=== PATIENT | male | born 1970 | race Two or more races ===

== ENCOUNTER 2025-07-15 09:34 | Inpatient (IN) | payer MEDICAID, OTHER ==
[~2025-07-15] VITALS: Ht 177.8 cm; Wt 84.0 kg
--- NOTE | 2025-07-15 10:01 | ED.PDOC ---
HPI Comments This is a 55 year old male presenting to the ED with chief complaint of chest pain. Patient reports that he has been experiencing left sided chest pain for the past week. Patient relays that his pain is worsened with deep breaths. Patient states he was told at his PCP's office last week that an EKG he had done was abnormal. Patient denies any SOB, dizziness, headache, or N/V. Chief Complaint: Chest Pain Time Seen by MD: 10:00 Primary Care Provider: Michael Cespedes Reviewed Notes: Nurses Notes, Medications, Allergies Allergies: Coded Allergies: Penicillins (Verified Allergy, Unknown, 07/15/25) Information Source: Patient Mode of Arrival: Ambulatory Severity: Moderate Timing: Weeks Duration: Since onset Prehospital treatment: None Location: Chest (L) Radiation: No Radiation Quality: Aching Onset: At Rest Cardiac Risk Factors: Diabetes PE Risk Factors: None History of: Similar pain in past Past Medical History PAST MEDICAL HISTORY: DM Surgical History: Denies all surgeries Family History Family History: Reviewed,noncontributory to illness Social History Smoker: Cigarettes Alcohol: Denies ETOH Use Drugs: Denies Drug Use Lives In: Home Constitutional: denies: chills, diaphoresis, fatigue, fever, malaise, sweats, weakness, others EENTM: denies: blurred vision, double vision, ear bleeding, ear discharge, ear drainage, ear pain, ear ringing, eye pain, eye redness, hearing loss, mouth pain, mouth swelling, nasal discharge, nose bleeding, nose congestion, nose pain, photophobia, tearing, throat pain, throat swelling, voice changes, others Respiratory: denies: cough, hemoptysis, orthopnea, SOB at rest, shortness of breath, SOB with excertion, stridor, wheezing, others Cardiovascular: reports: chest pain; denies: dizzy spells, diaphoresis, Dyspnea on exertion, edema, irregular heart beat, left arm pain, lightheadedness, palpitations, PND, syncope, others Gastrointestinal: denies: abdomen distended, abdominal pain, blood streaked bowels, constipated, diarrhea, dysphagia, difficulty swallowing, hematemesis, melena, nausea, poor appetite, poor fluid intake, rectal bleeding, rectal pain, vomiting, others Genitourinary: denies: burning, dysuria, flank pain, frequency, hematuria, incontinence, penile discharge, penile sore, pain, testicle pain, testicle swelling, urgency, others Neurological: denies: dizziness, fainting, headache, left sided numbness, left sided weakness, numbness, paresthesia, pre-existing deficit, right sided numbness, right sided weakness, seizure, speech problems, tingling, tremors, weakness, others Musculoskeletal: denies: back pain, gout, joint pain, joint swelling, muscle pa in, muscle stiffness, neck pain, others Integumetry: denies: bruises, change in color, change in hair/nails, dryness, laceration, lesions, lumps, rash, wounds, others Allergic/Immunocompromised: denies: Difficulty Healing, Frequent Infections, Hives, Itching, others Hematologic/Lymphatic: denies: anemia, blood clots, easy bleeding, easy bruising, swollen glands, others Endocrine: denies: excessive hunger, excessive sweating, excessive thirst, excessive urination, flushing, intolerance to cold, intolerance to heat, unexplained weight gain, unexplained weight loss, others Psychiatric: denies: anxiety, bipolar disorder, depression, hopeless, panic disorder, schizophrenia, sleepless, suicidal, others All Other Systems: Reviewed and Negative Physical Exam General Appearance: Moderate Distress, Normal HEENT: Normal ENT Inspection, Pharynx Normal, TMs Normal Neck: Full Range of Motion, Non-Tender, Normal, Normal Inspection Respiratory: Chest Non-Tender, Lungs Clear, No Accessory Muscle Use, No Respiratory Distress, Normal Breath Sounds Cardiovascular: No Edema, No JVD, No Murmur, No Gallop, Normal Peripheral Pulses, Regular Rate/Rhythm Breast Exam: Deferred Gastrointestinal: No Organomegaly, Non Tender, No Pulsatile Mass, Normal Bowel Sounds, Soft Genitalia: Deferred Pelvic: Deferred Rectal: Deferred Extremities: No calf tenderness, Normal capillary refill, Normal inspection, Normal range of motion, Non-tender, No pedal edema Musculoskeletal : Apperance: Normal Neurologic: Alert, retail advertising account executive II-XII nml as Tested, No Motor Deficits, Normal Affect, Normal Mood, No Sensory Deficits Cerebellar Function: Normal Reflexes: Normal Skin: Dry, Normal Color, Warm Peripheral Pulses: 3+ Radial (R), 3+ Radial (L) Lymphatic: No Adenopathy Was a procedure done? Was a procedure done?: No CP Differential Dx Differential Diagnosis: A-fib, A-Flutter, Angina, Anxiety / Panic Attack, Atrial Dysrhythmia, Electrolyte Disorder X-Ray, Labs, Meds, VS Vital Signs Date Time Temp Pulse Resp B/P (MAP) Pulse Ox O2 Delivery O2 Flow Rate FiO2 07/15/25 11:40 98.0 75 20 127/91 (103) 99 98.0 07/15/25 11:40 75 20 99 Room Air 07/15/25 11:36 127/91 07/15/25 09:41 77 07/15/25 09:35 97.5 85 18 145/98 99 97.5 Lab Test 07/15/25 11:20 Range/Units White Blood Count 7.3 4.4-10.8 10^3/uL Red Blood Count 4.57 4.5-5.90 10^6/uL Hemoglobin 15.5 13.5-17.5 g/dL Hematocrit 45.1 41.0-53.0 % Mean Corpuscular Volume 98.7 80.0-100.0 fL Mean Corpuscular Hemoglobin 34.0 H 28.0-32.0 pg Mean Corpuscular Hemoglobin Concent 34.4 32.0-36.0 g/dL Red Cell Distribution Width 12.7 11.8-14.3 % Platelet Count 311 140-450 10^3/uL Mean Platelet Volume 6.6 L 6.9-10.8 fL Neutrophils (%) (Auto) 66.6 37.0-80.0 % Lymphocytes (%) (Auto) 23.6 10.0-50.0 % Monocytes (%) (Auto) 7.8 0.0-12.0 % Eosinophils (%) (Auto) 1.8 0.0-7.0 % Basophils (%) (Auto) 0.2 0.0-2.0 % Neutrophils # (Auto) 4.9 1.6-8.6 10 ^3/uL Lymphocytes # (Auto) 1.7 0.4-5.4 10 ^3/uL Monocytes # (Auto) 0.6 0-1.3 10 ^3/uL Eosinophils # (Auto) 0.1 0-0.8 10 ^3/uL Basophils # (Auto) 0 0-0.2 10 ^3/uL Nucleated Red Blood Cells 0.2 % D-Dimer, Quantitative 0.31 0.0-0.49 mg/L FEU Sodium Level 136 136-145 mmol/L Potassium Level 5.0 3.5-5.1 mmol/L Chloride Level 100 98-107 mmol/L Carbon Dioxide Level 31 20-31 mmol/L Anion Gap 5 5-15 Blood Urea Nitrogen 34 H 9-23 mg/dL Creatinine 0.86 0.700-1.30 mg/dL Glomerular Filtration Rate Calc 102 >90 mL/min BUN/Creatinine Ratio 39.5 H 10.0-20.0 Serum Glucose 112 H 74-106 mg/dL Calcium Level 9.4 8.7-10.4 mg/dL Troponin I High Sensitivity 5 </=54 ng/L Current Medications Medications (Trade) Dose Ordered Sig/Nicko Route Start Time Stop Time Status Last Admin Aspirin 325 mg ONCE ONCE PO 07/15/25 10:45 07/15/25 10:46 DC 07/15/25 11:34 Nitroglycerin (Ntrostat Sublingual) 0.4 mg ONCE ONCE SL 07/15/25 10:45 07/15/25 10:46 DC 07/15/25 11:36 Patient alert. Came in because of chest pain. Cardiac marker within normal limits. Was given aspirin. Was given nitro. EKG reviewed does not show any acute changes. D-dimer within normal limits. WBC within normal limits. Hemoglobin within normal limits. Possibly need stress test. Risk factors for coronary artery disease. Time of 1ST Reevaluation: 10:59 Reevaluation 1ST: Unchanged Patient Education/Counseling: Diagnosis, Treatment Family Education/Counseling: No Family Present SEPSIS Sepsis Screen Date sepsis recognized/suspect: Jul 15, 2025 Time Sepsis recognized/suspect: 935 Recent Procedure: No On Antibiotic Therapy: No Respiratory Rate >20: No Heart Rate >90: No Temp<36 C (96.8 F) or >38.3 C: No SBP <90 or MAP <65 mmHG: No New Acute Mental Status Change: No Is the patient on CPAP, BIPAP,: No Physician Orders Electrocardigram (07/15/25 09:56) Troponin-I Hs (07/15/25 10:56) Troponin-I Hs (07/15/25 12:56) Electrocardigram (07/15/25 10:56) Electrocardigram (07/15/25 12:56) Vital Signs Date Time Temp Pulse Resp B/P (MAP) Pulse Ox O2 Delivery O2 Flow Rate FiO2 07/15/25 11:40 98.0 75 20 127/91 (103) 99 98.0 07/15/25 11:40 75 20 99 Room Air 07/15/25 11:36 127/91 07/15/25 09:41 77 07/15/25 09:35 97.5 85 18 145/98 99 97.5 Laboratory Tests Test 07/15/25 11:20 White Blood Count 7.3 10^3/uL (4.4-10.8) Medications Medications Dose Ordered Sig/Nicko Route Start Time Stop Time Status Last Admin Dose Admin Aspirin 325 mg ONCE ONCE PO 07/15/25 10:45 07/15/25 10:46 DC 07/15/25 11:34 Nitroglycerin 0.4 mg ONCE ONCE SL 07/15/25 10:45 07/15/25 10:46 DC 07/15/25 11:36 Departure 1 Departure Time of Disposition: 12:20 Impression: Primary Impression: Chest pain of unknown etiology Disposition: ADMITTED INPATIENT Admit to: Med Surg Condition: Guarded Critical Care Note Critical Care Time?: No Stability Stability form required: No Heart Score Heart Score: Heart Score Response (Comments) Value History Moderate Suspicious 1 EKG Normal 0 Age 45-64 1 Risk Factors 1 or 2 risk factors 1 Troponin Normal limit 0 Total 3 I personally scribed for SOPHIE YOUNG MD ([email or web address]) on 07/15/25 at 10:01. Electronically submitted by Marcelo Portillo ([email or web address]). SOPHIE YOUNG MD Jul 15, 2025 10:01
[2025-07-15] MEDS: NITROGLYCERIN 0.4 MG SL TAB SL ONE (11:36)
[2025-07-15 11:46] LABS: Hematocrit 45.1 % (41.0-53.0); Hemoglobin 15.5 g/dL (13.5-17.5); Mean Corpuscular Hemoglobin 34.0 pg (28.0-32.0); Mean Corpuscular Volume 98.7 fL (80.0-100.0); Nucleated Red Blood Cells % 0.2 %
[2025-07-15 11:54] LABS: Chloride 100 mmol/L (98-107); Potassium 5.0 mmol/L (3.5-5.1)
[2025-07-15 11:55] LABS: Anion Gap 5 (5-15); Calcium 9.4 mg/dL (8.7-10.4); Carbon Dioxide 31 mmol/L (20-31); Sodium 136 mmol/L (136-145)
[2025-07-15 12:00] LABS: BUN/Creatinine Ratio 39.5 (10.0-20.0); Blood Urea Nitrogen 34 mg/dL (9-23); Glucose 112 mg/dL (74-106)
[2025-07-15] MEDS ORDERED: NITROGLYCERIN 0.4 MG SL TAB SL ONE (15:00)
--- NOTE | 2025-07-15 16:04 | DVHINCON2 ---
Date Seen: Jul 15, 2025 Referring Physician MD Colten Reason for Consultation Chest pain History of Present Illness This is a 55-year-old man who presented to the emergency room with a chief complaint of chest pain for one year. The patient reports intermittent chest pain for the past year and worse during the past week. Describes the chest pain as substernal, soreness like and sharp in nature, nonradiating, and unprovoked. During admission the patient was medicated with NTG SL and ASA 325 mg with some relief of symptoms. He underwent a twelve-lead electrocardiogram revealing a sinus rhythm with non-specific changes to inferior leads. Serial troponin levels are negative. Of note, the patient states he exercises 5-6 times per week including heavy lifting. He also admits to the use of weekly testosterone shots for the past 9 months. Past medical history includes [id number] diabetes mellitus, dyslipidemia, anxiety on Adderall and Xanax, and e-cigarette use. Past Medical History Past medical history reviewed. No other significant than mentioned above. Past Surgical History Past medical history reviewed. No other significant than mentioned above. Family History Family history reviewed: Maternal grandfather: CABG, carotid stent Paternal grandmother: Unspecified CV disease Social History Denies the use of illicit drugs or alcohol. Admits to E-cigarette use, vaping. Allergies: Coded Allergies: Penicillins (Verified Allergy, Unknown, 07/15/25) Home Meds Home medications reviewed. Current Medications Current Medications Medications (Trade) Dose Ordered Sig/Nicko Route PRN Reason Start Time Stop Time Status Last Admin Aspirin 81 mg DAILY PO 07/16/25 10:00 Review of Systems Constitutional: No symptom reported Ears, Nose, & Throat: No symptom reported Eyes: No symptom reported Neurological: No symptoms reported Pulmonary/Respiratory: No symptom reported Cardiovascular: Chest pain Gastrointestinal: No symptom reported Genitourinary: No symptom reported Musculoskeletal: No symptom reported Skin: No symptom reported Psychiatric: No symptom reported Endocrine: No symptom reported Hemotologic/Lymphatic: No symptom reported Vital Signs Vital Signs Date Time Temp Pulse Resp B/P (MAP) Pulse Ox O2 Delivery O2 Flow Rate FiO2 07/15/25 12:28 148/91 07/15/25 11:40 98.0 75 20 99 98.0 07/15/25 11:40 Room Air Physical Exam General Appearance: Cooperative. Well developed. Well nourished. In no acute distress Head Exam: Normal inspection Neck Exam: Normal inspection. Non-tender. Normal alignment Pulmonary/Respiratory: Chest non-tender. Clear bilateral breath sounds Cardiovascular/Chest: Regular rate and rhythm. S1, S2. Sinus rhythm with nonspecific inferior changes. No murmurs. No JVD. Peripheral Pulses: 2+ Radial (R). 2+ Radial (L). 2+ Pedal (R). 2+ Pedal (L) Abdominal Exam: Normal bowel sounds. Soft. Nontender. No hepatospenomegaly. No masses Ankle Exam: Negative ankle edema Lower extremities: Negative lower extremity edema Neuro/Mental Status: A&O x4. Coherent Thoughts/Psych: Normal thought pattern. Anxious Appearance: In no acute distress Skin Exam: Normal inspection. Normal color. Warm. Dry Labs/Diagnostic Data Labs Test 07/15/25 15:16 07/15/25 13:01 07/15/25 11:20 Range/Units Lactic Acid Level 0.9 0.4-2.0 mmol/L Troponin I High Sensitivity 6 </=54 ng/L White Blood Count 7.3 4.4-10.8 10^3/uL Red Blood Count 4.57 4.5-5.90 10^6/uL Hemoglobin 15.5 13.5-17.5 g/dL Hematocrit 45.1 41.0-53.0 % Mean Corpuscular Volume 98.7 80.0-100.0 fL Mean Corpuscular Hemoglobin 34.0 H 28.0-32.0 pg Mean Corpuscular Hemoglobin Concent 34.4 32.0-36.0 g/dL Red Cell Distribution Width 12.7 11.8-14.3 % Platelet Count 311 140-450 10^3/uL Mean Platelet Volume 6.6 L 6.9-10.8 fL Neutrophils (%) (Auto) 66.6 37.0-80.0 % Lymphocytes (%) (Auto) 23.6 10.0-50.0 % Monocytes (%) (Auto) 7.8 0.0-12.0 % Eosinophils (%) (Auto) 1.8 0.0-7.0 % Basophils (%) (Auto) 0.2 0.0-2.0 % Neutrophils # (Auto) 4.9 1.6-8.6 10 ^3/uL Lymphocytes # (Auto) 1.7 0.4-5.4 10 ^3/uL Monocytes # (Auto) 0.6 0-1.3 10 ^3/uL Eosinophils # (Auto) 0.1 0-0.8 10 ^3/uL Basophils # (Auto) 0 0-0.2 10 ^3/uL Nucleated Red Blood Cells 0.2 % D-Dimer, Quantitative 0.31 0.0-0.49 mg/L FEU Sodium Level 136 136-145 mmol/L Potassium Level 5.0 3.5-5.1 mmol/L Chloride Level 100 98-107 mmol/L Carbon Dioxide Level 31 20-31 mmol/L Anion Gap 5 5-15 Blood Urea Nitrogen 34 H 9-23 mg/dL Creatinine 0.86 0.700-1.30 mg/dL Glomerular Filtration Rate Calc 102 >90 mL/min BUN/Creatinine Ratio 39.5 H 10.0-20.0 Serum Glucose 112 H 74-106 mg/dL Calcium Level 9.4 8.7-10.4 mg/dL Assessment Chest pain rule out coronary artery disease Rule out structural heart disease Pertinent family history of CV disease Yjg-wxheblm-zuccqgplh diabetes mellitus Hypertension, newly diagnosed Dyslipidemia E cigarette/Testosterone use Anxiety Plan/Recommendation (Dr. Grubbs) The patient with a Heart Score of 4 (moderate risk for major cardiac events) will undergo a transthoracic echocardiogram to evaluate cardiac function as well as a Cardiolite stress test to rule out coronary ischemia. In the meantime, continue single-antiplatelet therapy, lipid lowering agent, and initiate blood pressure control. Initiate chest pain protocol. Monitor ECG changes closely and notify accordingly. Counseled on e-cigarette use cessation. Further orders per clinical course. Thank you for allowing us to participate in this patient's care. Please call if you have any questions or concerns. This medical document was created using an electronic medical record system with voice recognition software and computerized dictation system. Although this document has been carefully reviewed, there might still be some phonetic and typographical errors. Occasional wrong-word or ``sound-alike substitutions may have occurred due to the inherent limitations of voice recognition software. These areas are purely typographical due to imperfections of the software programs and do not reflect any compromise in the patient's medical care. Please read the chart carefully and recognize, using context, where these substitutions have occurred. Plan discussed with: Patient, Other NYHA Physical activity limitations: NA Date of Service: Jul 15, 2025 Billing Provider: MERLY SIMS Cardiology Common Codes: [id number] MERLY SIMS Jul 15, 2025 16:04
[2025-07-15 16:06] LABS: Magnesium 2.4 mg/dL (1.6-2.6); Triglycerides 124.0 mg/dL (< 150)
[2025-07-15 16:07] LABS: Cholesterol 165.0 mg/dL (< 200)
[2025-07-15 16:08] LABS: HDL Cholesterol 35.0 mg/dL (40-59)
[2025-07-15 16:18] LABS: INR 0.97 (0.9-1.15); Partial Thromboplastin Time 27.4 SEC (24.5-34.5); Prothrombin Time 10.3 sec (9.3-11.8)
[2025-07-15 16:20] LABS: Alanine Aminotransferase 35 U/L (7-40); Albumin 4.4 g/dL (3.2-4.8); Alkaline Phosphatase 42 U/L (46-116); Bilirubin, Direct < 0.1 mg/dL (<0.3); Bilirubin, Total 0.4 mg/dL (0.2-1.0); Total Protein 6.9 g/dL (5.7-8.2)
[2025-07-15] MEDS ORDERED: NITROGLYCERIN 0.4 MG SL TAB SL PRN (17:00)
[2025-07-15] MEDS ORDERED: MORPHINE SULFATE INJ 2 MG/ml SYRG IV PRN (17:00)
[2025-07-15] MEDS: ATORVASTATIN 20 MG TAB PO ONE (17:12)
--- NOTE | 2025-07-15 17:17 | DVHPNRES ---
Progress Note Date Seen: Jul 15, 2025 Resident Creating Document: DOMINIQUE PACHECO Objective vital signs Vital Sign Date Time Temp Pulse Resp B/P (MAP) Pulse Ox O2 Delivery O2 Flow Rate FiO2 07/15/25 14:45 97.3 74 18 128/84 (99) 98 97.3 07/15/25 11:40 Room Air medications Current Medications Medications Dose Ordered Sig/Nicko Route Start Time Stop Time Status Last Admin Dose Admin Aspirin 81 mg DAILY PO 07/16/25 10:00 Nitroglycerin 0.4 mg Q5MINP PRN SL 07/15/25 17:00 Morphine Sulfate 2 mg Q30M PRN IV 07/15/25 17:00 Metoprolol Tartrate 12.5 mg BID PO 07/15/25 22:00 laboratory and microbiology Laboratory Tests 07/15/25 11:20 Test 07/15/25 11:20 Range/Units Serum Glucose 112 H 74-106 mg/dL My Orders My Orders Orders - DOMINIQUE PACHECO Procedure Category Date Status Time Admit ADMIT 07/15/25 Transmitted 14:37 Oxygen By Nasal RT 07/15/25 Transmitted Cannula 14:37 Notify Of Changes [facility] 07/15/25 In Process From Base 14:37 Loader Engineer For [facility] 07/15/25 In Process 24 Hours 14:37 Emergency Dysrhythmia [facility] 07/15/25 In Process Protocol 14:37 Rhythm Strips Once [facility] 07/15/25 In Process Every Shift 14:37 Aspirin Tablet [facility] 07/16/25 In Process 10:00 Atorvastatin (Lipitor) [facility] 07/16/25 In Process 10:00 DOMINIQUE PACHECO Jul 15, 2025 17:17
--- NOTE | 2025-07-15 18:27 | ECG ---
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
--- NOTE | 2025-07-15 18:59 | DVHHPRES ---
History of Present Illness Resident Creating Document: DOMINIQUE PACHECO RESIDENT History of Present Illness 55-year-old male with on testosterone, adderall, Peyronie's disease on pentoxifylline, methamphetamine, heroin abuse, newly diagnosed hypertension presented to the ER with history of increasing chest pain since last 1 week. The pain is retrosternal, oppressive, increases with exertion and relieved by rest and nitroglycerin. He denies any shortness of breath, fever, abdominal pain or any other symptoms today. He takes testosterone weekly for the past 9 months and does heavy strength training and cardio exercises. Past medical history: Methamphetamine and cocaine abuse Past surgical history: Surgery for Peyronie's disease Medications: Adderall, pentoxifylline, testosterone Smoking: E cigarettes Alcohol: Occasionally Drugs: Heroin, methamphetamine, cocaine, crack cocaine, vaping marijuana? Code status: Review of Systems Cardiovascular: Chest Pain Allergies: Coded Allergies: Penicillins (Verified Allergy, Unknown, 07/15/25) Medications Current Medications Medications Dose Ordered Sig/Nicko Route Start Time Stop Time Status Last Admin Dose Admin Aspirin 81 mg DAILY PO 07/16/25 10:00 Nitroglycerin 0.4 mg Q5MINP PRN SL 07/15/25 17:00 Morphine Sulfate 2 mg Q30M PRN IV 07/15/25 17:00 Metoprolol Tartrate 12.5 mg BID PO 07/15/25 22:00 Enoxaparin Sodium 40 mg DAILY SC 07/16/25 10:00 UNV Exam Vital Signs Vital Signs Date Time Temp Pulse Resp B/P (MAP) Pulse Ox O2 Delivery O2 Flow Rate FiO2 07/15/25 17:25 98.0 74 20 126/94 (105) 98 98.0 07/15/25 11:40 Room Air Exam Pt is lying on bed General Appearance: Alert, Oriented X3, Cooperative, Mild distress HEENT: Atraumatic, Mucous membranes moist/pink Respiratory: Clear to auscultation, Normal air movement, No added sounds Cardiovascular: Regular rate, Normal S1, Normal S2, No murmurs Abdominal/ : Active bowel sounds, Soft, no distention, no tenderness Extremities: No edema, Normal pulses, No tenderness/swelling Skin: No Significant rash, except past surgical scars Neuro: Normal speech, sensorimotor deficits none Psych/Mental Status: Mental status NL, Mood NL Nurse was there as computer repair engineer during examination Labs/Xrays Labs Test 07/15/25 15:16 07/15/25 13:01 07/15/25 11:20 Range/Units Lactic Acid Level 0.9 0.4-2.0 mmol/L Troponin I High Sensitivity 6 </=54 ng/L Phosphorus Level 2.1 L 2.4-5.1 mg/dL Magnesium Level 2.4 1.6-2.6 mg/dL Total Bilirubin 0.4 0.2-1.0 mg/dL Direct Bilirubin < 0.1 <0.3 mg/dL Aspartate Amino Transferase (AST) 42 H 13-40 U/L Alanine Aminotransferase (ALT) 35 7-40 U/L Alkaline Phosphatase 42 L 46-116 U/L Total Protein 6.9 5.7-8.2 g/dL Albumin 4.4 3.2-4.8 g/dL Triglycerides Level 124 < 150 mg/dL Cholesterol Level 165 < 200 mg/dL LDL Cholesterol 124 H < 100 mg/dL HDL Cholesterol 35 L 40-59 mg/dL Vitamin B12 Level 755 211-911 pg/mL Vitamin D 25-Hydroxy 40.4 30.0-100 ng/mL Thyroid Stimulating Hormone (TSH) 0.80 0.55-4.78 uIU/mL White Blood Count 7.3 4.4-10.8 10^3/uL Red Blood Count 4.57 4.5-5.90 10^6/uL Hemoglobin 15.5 13.5-17.5 g/dL Hematocrit 45.1 41.0-53.0 % Mean Corpuscular Volume 98.7 80.0-100.0 fL Mean Corpuscular Hemoglobin 34.0 H 28.0-32.0 pg Mean Corpuscular Hemoglobin Concent 34.4 32.0-36.0 g/dL Red Cell Distribution Width 12.7 11.8-14.3 % Platelet Count 311 140-450 10^3/uL Mean Platelet Volume 6.6 L 6.9-10.8 fL Neutrophils (%) (Auto) 66.6 37.0-80.0 % Lymphocytes (%) (Auto) 23.6 10.0-50.0 % Monocytes (%) (Auto) 7.8 0.0-12.0 % Eosinophils (%) (Auto) 1.8 0.0-7.0 % Basophils (%) (Auto) 0.2 0.0-2.0 % Neutrophils # (Auto) 4.9 1.6-8.6 10 ^3/uL Lymphocytes # (Auto) 1.7 0.4-5.4 10 ^3/uL Monocytes # (Auto) 0.6 0-1.3 10 ^3/uL Eosinophils # (Auto) 0.1 0-0.8 10 ^3/uL Basophils # (Auto) 0 0-0.2 10 ^3/uL Nucleated Red Blood Cells 0.2 % Prothrombin Time 10.3 9.3-11.8 sec Prothrombin Time INR 0.97 0.9-1.15 Activated Partial Thromboplast Time 27.4 24.5-34.5 SEC D-Dimer, Quantitative 0.31 0.0-0.49 mg/L FEU Sodium Level 136 136-145 mmol/L Potassium Level 5.0 3.5-5.1 mmol/L Chloride Level 100 98-107 mmol/L Carbon Dioxide Level 31 20-31 mmol/L Anion Gap 5 5-15 Blood Urea Nitrogen 34 H 9-23 mg/dL Creatinine 0.86 0.700-1.30 mg/dL Glomerular Filtration Rate Calc 102 >90 mL/min BUN/Creatinine Ratio 39.5 H 10.0-20.0 Serum Glucose 112 H 74-106 mg/dL Hemoglobin A1c 4.8 <5.7 % A1C Calcium Level 9.4 8.7-10.4 mg/dL SEPSIS Sepsis Screen Date sepsis recognized/suspect: Jul 15, 2025 Time Sepsis recognized/suspect: 09 Recent Procedure: No On Antibiotic Therapy: No Respiratory Rate >20: No Heart Rate >90: No Temp<36 C (96.8 F) or >38.3 C: No SBP <90 or MAP <65 mmHG: No New Acute Mental Status Change: No Is the patient on CPAP, BIPAP,: No Physician Orders * Cardiology Consult (07/15/25 14:21) Admit (07/15/25 14:37) Oxygen By Nasal Cannula (07/15/25 14:37) Notify Of Changes From Base (07/15/25 14:37) Clarifier Operator For 24 Hours (07/15/25 14:37) Emergency Dysrhythmia Protocol (07/15/25 14:37) Rhythm Strips Once Every Shift (07/15/25 14:37) Aspirin Tablet (07/16/25 10:00) Atorvastatin (Lipitor) (07/16/25 10:00) Urinalysis (07/15/25 14:47) Drug Screen (07/15/25 14:47) Echo 2d Mode Cardiac Dop (07/15/25 14:47) Comprehensive Metabolic Panel (07/16/25 04:00) Basic Metabolic Panel (07/16/25 04:00) Cardiolite Multiple (07/15/25 15:54) Nitroglycerin Sublingual (Ntrostat Subli (07/15/25 17:00) Morphine Sulfate Injection (07/15/25 17:00) Stat Ekg For Chest Pain (07/15/25 16:52) Oxygen By Nasal Cannula (07/15/25 16:52) Metoprolol Tartrate Tablet (Lopressor Ta (07/15/25 22:00) Cardiac Diet-2gna,Lofat,Lochol (07/15/25 Dinner) Complete Blood Count (07/16/25 04:00) Enoxaparin Sodium (Lovenox) (07/16/25 10:00) Testosterone Free And Total (07/15/25 18:20) Vital Signs Date Time Temp Pulse Resp B/P (MAP) Pulse Ox O2 Delivery O2 Flow Rate FiO2 07/15/25 17:25 98.0 74 20 126/94 (105) 98 98.0 07/15/25 14:45 97.3 74 18 128/84 (99) 98 97.3 07/15/25 12:28 148/91 07/15/25 11:40 98.0 75 20 127/91 (103) 99 98.0 07/15/25 11:40 75 20 99 Room Air 07/15/25 11:36 127/91 Laboratory Tests Test 07/15/25 11:20 07/15/25 15:16 White Blood Count 7.3 10^3/uL (4.4-10.8) Lactic Acid Level 0.9 mmol/L (0.4-2.0) Medications Medications Dose Ordered Sig/Nicko Route Start Time Stop Time Status Last Admin Dose Admin Aspirin 325 mg ONCE ONCE PO 07/15/25 10:45 07/15/25 10:46 DC 07/15/25 11:34 325 MG Atorvastatin Calcium 40 mg ONCE ONCE PO 07/15/25 14:45 07/15/25 15:23 DC 07/15/25 17:12 40 MG Nitroglycerin 0.4 mg ONCE ONCE SL 07/15/25 10:45 07/15/25 10:46 DC 07/15/25 11:36 0.4 MG Assessment/Plan Assessment/Plan Unstable angina EKG: T-wave inversions in anterior leads Troponins negative Sublingual nitroglycerin Aspirin Atorvastatin Echocardiography ordered Cardiology consultation: Transthoracic echo and Cardiolite stress test Blood testosterone level ordered Hypertension Metoprolol Dyslipidemia Atorvastatin Polysubstance abuse The patient is counseled on cessation for more than 14 minutes GI prophylaxis: Pantoprazole DVT prophylaxis: Enoxaparin Diet: Cardiac Goals of care discussed with the patient for more than 27 minutes: Full code status Case discussed with Dr. Abel, patient and RN Plan discussed with: Patient, Other (RN) My Orders Orders - DOMINIQUE PACHECO Procedure Category Date Status Time Admit ADMIT 07/15/25 Transmitted 14:37 Oxygen By Nasal RT 07/15/25 Transmitted Cannula 14:37 Notify Of Changes [facility] 07/15/25 In Process From Base 14:37 Clarifier Operator For [facility] 07/15/25 In Process 24 Hours 14:37 Emergency Dysrhythmia [facility] 07/15/25 In Process Protocol 14:37 Rhythm Strips Once [facility] 07/15/25 In Process Every Shift 14:37 Aspirin Tablet [facility] 07/16/25 In Process 10:00 Atorvastatin (Lipitor) PHA 07/16/25 In Process 10:00 Complete Blood Count LAB 07/16/25 Verified 04:00 Enoxaparin Sodium PHA 07/16/25 Logged (Lovenox) 10:00 Testosterone Free And LAB 07/15/25 Logged Total 18:20 Date of Service: Jul 15, 2025 Billing Provider: BLAKE ABEL MD Common Visit Codes: 16419-[id number] INP/OBS CARE (HIGH) Secondary Visit Codes: [id number] CARE PLAN 30 MINUTES DOMINIQUE PACHECO Jul 15, 2025 18:59 BLAKE ABEL MD Jul 17, 2025 22:04
[2025-07-15] MEDS: METOPROLOL TARTRATE 25 MG TAB PO SCH (22:00)
[2025-07-15 23:32] LABS: Urine Protein, UAD TRACE (Negative)
[2025-07-16] VITALS (7 sets, daily range): BP systolic 130–146; BP diastolic 74–93; PULSE 63–74; RESP 17–19; TEMP 36.6; O2SAT 97–98
[2025-07-16 00:16] LABS: Amphetamine Screen, Urine Pos (NEGATIVE); Barbiturate Scree,Urine Neg (NEGATIVE); Benzodiazephine Screen, Urine Pos (NEGATIVE); Cannabinoid Screen, Urine Neg (NEGATIVE); Cocaine Screen, Urine Neg (NEGATIVE); Opiate Scree,Urine Neg (NEGATIVE); Phencyclidine Screen, Urine Neg (NEGATIVE)
[2025-07-16] MEDS ORDERED: ALPR1TAB7 PO (01:00)
[2025-07-16] MEDS ORDERED: METF-370 PO (01:01)
[2025-07-16] MEDS ORDERED: AMPH10TA2 PO (01:01)
[2025-07-16] MEDS: ALPRAZolam 0.5 MG TAB PO ONE (02:13)
[2025-07-16] MEDS: SODIUM PHOSPHATES 20 MEQ in SODIUM CHL 0.9% 100 ML IV ONE (02:55)
[2025-07-16] MEDS: PANTOPRAZOLE 40 MG TAB PO SCH (05:40)
[2025-07-16 06:56] LABS: Mean Corpuscular Hemoglobin 34.5 pg (28.0-32.0)
[2025-07-16 06:59] LABS: Hematocrit 41.5 % (41.0-53.0); Hemoglobin 14.6 g/dL (13.5-17.5); Mean Corpuscular Volume 98.1 fL (80.0-100.0); Nucleated Red Blood Cells % 0.0 %
[2025-07-16 07:15] LABS: Alanine Aminotransferase 28 U/L (7-40); Anion Gap 9 (5-15); BUN/Creatinine Ratio 25.9 (10.0-20.0); Blood Urea Nitrogen 22 mg/dL (9-23); Calcium 8.9 mg/dL (8.7-10.4); Carbon Dioxide 26 mmol/L (20-31); Chloride 105 mmol/L (98-107); Glucose 94 mg/dL (74-106); Potassium 4.2 mmol/L (3.5-5.1); Sodium 140 mmol/L (136-145); Total Protein 6.0 g/dL (5.7-8.2)
[2025-07-16 07:16] LABS: Albumin 3.8 g/dL (3.2-4.8)
[2025-07-16 07:30] LABS: Alkaline Phosphatase 39 U/L (46-116); Bilirubin, Total 0.2 mg/dL (0.2-1.0)
[2025-07-16] MEDS: REGADENOSON 0.4 MG/5 ML SYRG IV ONE ×2 (09:35→09:41)
[2025-07-16] MEDS: ATORVASTATIN 20 MG TAB PO ONE (10:31)
[2025-07-16] MEDS: ENOXAPARIN SOD 40 MG/0.4 ML SYRINGE SC SCH (10:36)
[2025-07-16] MEDS: SENNA 8.6 MG TAB PO ONE (11:07)
--- NOTE | 2025-07-16 13:39 | DVHSR ---
APPROVED REPORT EXAM: Two-dimensional and M-mode echocardiogram with Doppler and color Doppler. Blood Pressure: 146/93 mmHg INDICATION Chest Pain RISK FACTORS Height: 5'10", Weight: 185 DIMENSIONS LVDd5.2 (3.8-5.7cm)LA (2D)4.6 (1.9-4.0cm)Aortic Root3.7 (2.0-3.7cm) LVDs3.7 (2.5-4.0cm)LA (MM) (1.9-4.0cm)Aortic Cusp Exc2.1 (1.5-2.0cm) EF (%) 55.0 (55-70%)Rt. Atrium3.9 (1.9-4.0cm)Asc. Aorta3.3 cm IVSd1.2 (0.7-1.1cm)RV (D)4.0 (1.8-2.4cm) PWd0.8 (0.7-1.1cm) Mitral Valve MitralMitral Stenosis E wave0.68m/sMV Mean GR.mmHg A wave0.59m/sMV Peak GR.mmHg E/A ratio1.22D MVAcm2 DECEL [id number] 1/2 Timems Aortic Valve Aortic ValveAortic Stenosis V11.08m/Eloisa Mean GR.5mmHg V21.36m/Eloisa Peak GR.7mmHg LVOT Diameter2.6 (1.8-2.4cm)Doppler AVA4.21cm2 Pulmonic Valve V20.94m/s Conclusion lvef 55% mild lvh normal rv function left atrium enlarged no severe valve abnormaliteis noted
--- NOTE | 2025-07-16 14:00 | DVHSR ---
APPROVED REPORT Exam: Nuclear Stress Test BMI: 0 Stress Test Details HR Max Heart Rate (APMHR): 164.491578 bpm Target HR (85% APMHR): 139.398478 bpm BP ECG Stress ECG Conclusion lvef 51% no severe ischemia noted GI artifact noted NM EXAM: Myocardial Perfusion REST/STRESS Imaging Protocol: Rest Tc-99m/Stress Tc-99m 1 day Resting Data Rest SPECT myocardial perfusion imaging was performed in supine position 60 minutes following the int ravenous injection of 10.2 mCi of Tc-99m Sestamibi. Time of rest injection: 07:49 Date: 07/16/2025 Time of rest imagin:49 Date: 07/16/2025 Administration Route: IV Administration Site: Right Arm Pharmacologic Stress Pharmacologic stress test was performed by injecting Regadenoson 0.4 mg IV push followed by the intra venous injection of 30.4 mCi of Tc-99m Sestamibi. Time of stress injection: 09:35 Date: 07/16/2025 Time of stress imagin:20 Date: 07/16/2025 Administration Route: IV Administration Site: Right Arm Gated Stress SPECT was performed 45 minutes after stress injection. The images were gated to evaluate regional wall motion and calculate left ventricular ejection fracti on. Stress only was performed in the Supine position. Nuclear Conclusion Nuclear Findings: negative for ischemia lvef 51% no severe ischemia noted GI artifact noted
[2025-07-16] MEDS ORDERED: MET25T PO (14:11)
[2025-07-16] MEDS ORDERED: ASPI-325 PO (14:11)
[2025-07-16] MEDS ORDERED: ATOR20TA50 PO (16:44)
--- NOTE | 2025-07-16 21:01 | DVHDSRES ---
Discharge Summary Date of Admission Resident Creating Document: DOMINIQUE PACHECO Jul 15, 2025 at 14:37 Date of Discharge: Jul 16, 2025 Admitting Diagnosis unstable angina Labs/Diagnostic Data: Laboratory Results Test 07/16/25 05:41 07/15/25 17:14 07/15/25 15:16 07/15/25 13:01 White Blood Count 10.0 10^3/uL (4.4-10.8) Red Blood Count 4.23 10^6/uL (4.5-5.90) Hemoglobin 14.6 g/dL (13.5-17.5) Hematocrit 41.5 % (41.0-53.0) Mean Corpuscular Volume 98.1 fL (80.0-100.0) Mean Corpuscular Hemoglobin 34.5 pg (28.0-32.0) Mean Corpuscular Hemoglobin Concent 35.2 g/dL (32.0-36.0) Red Cell Distribution Width 12.9 % (11.8-14.3) Platelet Count 282 10^3/uL (140-450) Mean Platelet Volume 6.8 fL (6.9-10.8) Neutrophils (%) (Auto) 60.5 % (37.0-80.0) Lymphocytes (%) (Auto) 27.6 % (10.0-50.0) Monocytes (%) (Auto) 7.5 % (0.0-12.0) Eosinophils (%) (Auto) 4.1 % (0.0-7.0) Basophils (%) (Auto) 0.3 % (0.0-2.0) Neutrophils # (Auto) 6.1 10 ^3/uL (1.6-8.6) Lymphocytes # (Auto) 2.8 10 ^3/uL (0.4-5.4) Monocytes # (Auto) 0.8 10 ^3/uL (0-1.3) Eosinophils # (Auto) 0.4 10 ^3/uL (0-0.8) Basophils # (Auto) 0 10 ^3/uL (0-0.2) Nucleated Red Blood Cells 0.0 % Sodium Level 140 mmol/L (136-145) Potassium Level 4.2 mmol/L (3.5-5.1) Chloride Level 105 mmol/L (98-107) Carbon Dioxide Level 26 mmol/L (20-31) Anion Gap 9 (5-15) Blood Urea Nitrogen 22 mg/dL (9-23) Creatinine 0.85 mg/dL (0.700-1.30) Glomerular Filtration Rate Calc 102 mL/min (>90) BUN/Creatinine Ratio 25.9 (10.0-20.0) Serum Glucose 94 mg/dL (74-106) Calcium Level 8.9 mg/dL (8.7-10.4) Total Bilirubin 0.2 mg/dL (0.2-1.0) Aspartate Amino Transferase (AST) 36 U/L (13-40) Alanine Aminotransferase (ALT) 28 U/L (7-40) Alkaline Phosphatase 39 U/L (46-116) Total Protein 6.0 g/dL (5.7-8.2) Albumin 3.8 g/dL (3.2-4.8) Urine Color Yellow (Yellow) Urine Clarity Clear (Clear) Urine pH 6.0 (5.0-9.0) Urine Specific [place] 1.038 (1.001-1.035) Urine Protein Trace (Negative) Urine Ketones Trace (Negative) Urine Blood Negative /uL (Negative) Urine Nitrite Negative (Negative) Urine Bilirubin Negative (Negative) Urine Urobilinogen 2 mg/dL (Negative) Urine Leukocyte Esterase Negative /uL (Negative) Urine RBC None seen /hpf (0 - 3) Urine Microscopic WBC 2 /HPF (0-3) Urine Squamous Epithelial Cells Few /hpf (<5) Urine Bacteria None seen /hpf (None Seen) Urine Glucose Trace mg/dL (Normal) Urine Opiates Screen Neg (NEGATIVE) Urine Fentanyl Screen Neg (NEGATIVE) Urine Barbiturates Screen Neg (NEGATIVE) Urine Phencyclidine Screen Neg (NEGATIVE) Urine Amphetamines Screen Pos (NEGATIVE) Urine Benzodiazepines Screen Pos (NEGATIVE) Urine Cocaine Screen Neg (NEGATIVE) Urine Cannabinoids Screen Neg (NEGATIVE) Lactic Acid Level 0.9 mmol/L (0.4-2.0) Troponin I High Sensitivity 6 ng/L (</=54) Phosphorus Level 2.1 mg/dL (2.4-5.1) Magnesium Level 2.4 mg/dL (1.6-2.6) Direct Bilirubin < 0.1 mg/dL (<0.3) Triglycerides Level 124 mg/dL (< 150) Cholesterol Level 165 mg/dL (< 200) LDL Cholesterol 124 mg/dL (< 100) HDL Cholesterol 35 mg/dL (40-59) Vitamin B12 Level 755 pg/mL (211-911) Vitamin D 25-Hydroxy 40.4 ng/mL (30.0-100) Thyroid Stimulating Hormone (TSH) 0.80 uIU/mL (0.55-4.78) Test 07/15/25 11:20 Prothrombin Time 10.3 sec (9.3-11.8) Prothrombin Time INR 0.97 (0.9-1.15) Activated Partial Thromboplast Time 27.4 SEC (24.5-34.5) D-Dimer, Quantitative 0.31 mg/L FEU (0.0-0.49) Hemoglobin A1c 4.8 % A1C (<5.7) Other Laboratory Tests 07/16/25 05:41 Brief Hx & Hospital Course: 55-year-old male with on testosterone, adderall, Peyronie's disease on pentoxifylline, methamphetamine, heroin abuse, newly diagnosed hypertension presented to the ER with history of increasing chest pain since last 1 week. The pain is retrosternal, oppressive, increases with exertion and relieved by rest and nitroglycerin. He denies any shortness of breath, fever, abdominal pain or any other symptoms today. He takes testosterone weekly for the past 9 months and does heavy strength training and cardio exercises. Past medical history: Methamphetamine and cocaine abuse Past surgical history: Surgery for Peyronie's disease Medications: Adderall, pentoxifylline, testosterone Smoking: E cigarettes Alcohol: Occasionally Drugs: remote history of drugs use, quit. Code status:Full code The patient presented to the emergency department with a one-week history of progressively worsening retrosternal chest pain described as oppressive in nature, exacerbated by exertion, and relieved by rest and sublingual nitroglycerin, he denied associated symptoms such as shortness of breath, fever or abdominal pain his past medical history is not able testosterone injections for the past 9 months while engaging in heavy strength training and cardio exercise. He also uses E cigarettes and drinks alcohol occasionally. On evaluation, his EKG showed T-wave inversions in anterior leads, though serial troponins remained negative. Patient admitted in hospital to rule out acute coronary syndrome (unstable angina), consulted cardiology who indicated Echocardiogram and Cardiolite stress test revealed no significant acute abnormality. Chest pain was attributed secondary to vasospasm. Was instructed to adhere to healthy lifestyle habits. Patient was advised to follow up with Cardiology and PCP in 1 week. The patient was hemodynamically stable, was tolerating oral food and fluid and a verbalized understanding of the discharge plan. General Appearance: Alert, Oriented X3, Cooperative, Mild distress HEENT: Atraumatic, Mucous membranes moist/pink Respiratory: Clear to auscultation, Normal air movement, No added sounds Cardiovascular: Regular rate, Normal S1, Normal S2, No murmurs Abdominal/ : Active bowel sounds, Soft, no distention, no tenderness Extremities: No edema, Normal pulses, No tenderness/swelling Skin: No Significant rash, except past surgical scars Neuro: Normal speech, sensorimotor deficits none Psych/Mental Status: Mental status NL, Mood NL Nurse was there as sterilizer machine operator during examination Case discussed with Dr. Abel, patient and RN Operations or Procedures Cardiolite stress test: Nuclear Conclusion Nuclear Findings: negative for ischemia lvef 51% no severe ischemia noted GI artifact noted Echocardiography: lvef 55% mild lvh normal rv function left atrium enlarged no severe valve abnormaliteis noted Condition at Discharge: Stable Final Diagnosis/Problems List Chest pain likely vasospasm Ruled out acute coronary syndrome Hypertension Dyslipidemia Polysubstance abuse Discharge Disposition: Home Discharge Instruct/Medications Diet: Consistent carbohydrate, Cardiac 2g Na,low cholest Activity: No Restrictions, As Tolerated Follow Up/Referral: [facility] cardio pcp Medications: asa metop Scheduled Alprazolam (Alprazolam), PO TID, (Reported) Aspirin (Aspirin Low Dose), 81 MG PO DAILY Atorvastatin Calcium (Atorvastatin Calcium), 1 TAB PO DAILY Metformin Hydrochloride (Metformin Hcl), 1 TAB PO TID, (Reported) Metoprolol Tartrate (Lopressor), 12.5 MG PO BID Discontinued Medications Amphetamine-Dextroamphetamine (Adderall), 30 MG PO DAILY, (Reported) Discharge Statement: "Patient was advised to return to the ER or call 911 if any headaches, dizziness, shortness of breath, chest pain, abdominal pain, bleeding, fevers, or worsening of medical condition. Patient was counseled about treatment plan, medications, possible side effects, patientverbalized understanding. All questions were answered to the best of my ability. This discharge took greater then 30 minutes in planning, reviewing documentation, counseling the patient, and discussing with other team members." ASSESSMENT ASSESSMENT Assessment chest pain likely vasospasm Date of Service: Jul 17, 2025 Billing Provider: BLAKE ABEL MD Common Visit Codes: 68735-SRG/OBS DISCH DAY >30min DOMINIQUE PACHECO RESIDENT Jul 16, 2025 21:01 SAAD SPEARS RESIDENT Jul 19, 2025 09:11 BLAKE ABEL MD Jul 19, 2025 10:43
[2025-07-16] MEDS ORDERED: SENNA 8.6 MG TAB PO SCH (22:00)
== END 2025-07-16 14:50 | disposition home or self-care (01) | DRG 198 ==
LOC: ER 09:34 → OVERFLOW 14:37 → TELE-WESTW 23:51
PROVIDERS: ADMIT Student in an Organized Health Care Education/Training Program; ATTEND Emergency Medicine
DX: I20.1 Angina pectoris with documented spasm (principal); E78.5 Hyperlipidemia, unspecified; I10 Essential (primary) hypertension; F19.10 Other psychoactive substance abuse, uncomplicated; F41.9 Anxiety disorder, unspecified; F17.290 Nicotine dependence, other tobacco product, uncomplicated; F17.210 Nicotine dependence, cigarettes, uncomplicated; Z79.84 Long term (current) use of oral hypoglycemic drugs; Z88.0 Allergy status to penicillin; Z79.02 Long term (current) use of antithrombotics/antiplatelets; T43.625A Adverse effect of amphetamines, initial encounter
CPT/HCPCS: 36415; 78452; 80048; 80053; 80061; 80076; 80307; 81001; 82306; 82607; 83036; 83605; 83735; 84100; 84402; 84403; 84443; 84484; 85025; 85379; 85610; 85730; 93005; 93017; 93306; G0378